=== PATIENT | male | born 1990 | race Caucasian/White ===

== ENCOUNTER 2016-12-01 20:57 | Emergency (ER) | payer OTHER ==
[2016-12-01 21:02] VITALS: RESP 14; TEMP 98.4
--- NOTE | 2016-12-01 21:17 | EDPHY ---
HPI/HX/ROS/PE/MDM Narrative: CHIEF COMPLAINT: Right lower extremity swelling. HISTORY OF PRESENT ILLNESS: The patient is a 26-year-old male presenting with right lower extremity swelling. The patient dove for a volleyball and landed in the grass on his right leg. He was able to continue playing volleyball game. He has been ambulatory and does not believe that he has any fracture. However, he developed a significant amount a lateral swelling and mild discomfort. He denies numbness or tingling in his foot. He denies a cold sensation to the foot. REVIEW OF SYSTEMS: Aside from elements discussed in the HPI, a comprehensive 10-point review of systems was reviewed and is negative. PAST MEDICAL HISTORY: Denies. SOCIAL HISTORY: Plays soccer and volleyball. VITAL SIGNS: Reviewed by me GENERAL: Well-developed, well-nourished, resting comfortably in no respiratory distress. HEENT: Benign. Atraumatic. LUNGS: Clear to auscultation bilaterally, no wheezes, rhonchi or rales. CARDIAC: Regular rate and rhythm, no rubs, murmurs or gallops. ABDOMEN: Soft, nontender, nondistended, bowel sounds normal. BACK: No CVA tenderness. EXTREMITIES: Abrasion to left patella. Small abrasion at right distal patella. On the lateral aspect of leg is a 20cm x 15cm area of swelling ecchymosis and tenderness. Good pulses and capillary refill. Foot is warm to the touch. Compartments on the calf are soft. NEURO: Alert and oriented, grossly nonfocal. SKIN: Warm and dry, no rash. PSYCHIATRIC: Normal mentation, no agitation. Portions of this note were transcribed by a medical records manager. I personally performed a history, physical exam, medical decision making, and confirmed accuracy of information the transcribed note. ED Course: Patient presents with right lower extremity swelling and tenderness after a fall playing volleyball this evening. Patient has a large area or swelling, ecchymosis, and tenderness. Plan for imaging. Xray: Tib-fib x-ray was obtained. I viewed the images myself on the PACS system. My interpretation of the images is: No fracture. The radiology interpretation is: Pending. I discussed the results with the patient. X-ray is negative for fracture. We discussed signs and symptoms of compartment syndrome at length with the patient. Jose A wrap was applied, the patient's leg was elevated, patient was instructed regarding icing aggressively. I discussed precautions for compartment syndrome. Patient is aware and will return if worse. MDM: Differential diagnosis for the patient's injury was considered including but not limited to contusion, abrasion, laceration, fracture, open fracture, hematoma, compartment syndrome, or dislocation. - Data Points Imaging: I viewed and interpreted images myself Medications Given: Discontinued Medications Hydrocodone Bitart/Acetaminophen (Alamo 5/325) 1 tab PO EDNOW ONE Stop: 12/01/16 22:14 Last Admin: 12/01/16 22:22 Dose: Not Given General Time Seen by Provider: 12/01/16 21:06 Initial Vital Signs: Initial Vital Signs Temperature (C) 36.9 C 12/01/16 20:59 Heart Rate 74 12/01/16 20:59 Respiratory Rate 14 12/01/16 20:59 Blood Pressure 114/81 H 12/01/16 20:59 O2 Sat (%) 93 12/01/16 20:59 O2 Delivery Mode Room Air Allergies/Adverse Reactions: No Known Allergies Allergy (Unverified 12/01/16 20:59) Home Medications: Medication Instructions Recorded Hydrocodone/APAP 5/325 [Alamo 1 tab PO Q6H PRN #10 tab 12/01/16 5/325 (RX)] Departure - Departure Disposition: Home, Routine, Self-Care Clinical Impression: Swelling of right lower extremity Condition: Good Instructions: Contusion in Adults (ED) Additional Instructions: Ice the leg aggressively 20-30 minutes every 1-2 hours. Apply mild compression with an JOSE A wrap. Take 600mg Ibuprofen every 6-8 hours as needed for pain and swelling. Take Alamo for severe pain. Watch for any signs of compartment syndrome including the 5Ps: 1. Paralysis, 2. Pulselessness, 3. Pain, 4. Pallor. 5. Paraesthesia. Referrals: Yosvany Floyd MD [Medical Doctor] - As per Instructions (Orthopedic surgery) Prescriptions: Hydrocodone/APAP 5/325 [Alamo 5/325 (RX)] 1 tab PO Q6H PRN #10 tab PRN Reason: Pain Report Scribed for: Sherry Hicks Report Scribed by: Xiomy Lo Date of Report: 12/01/16 Time of Report: 21:27
[2016-12-01] MEDS ORDERED: HYDROCODONE/APAP 5/325 TAB PO ONE (22:13)
[2016-12-01 22:52] VITALS: BP 141/91; PULSE 67; O2SAT 96
== END 2016-12-01 22:46 | disposition home or self-care (01) ==
DX: M79.89 Other specified soft tissue disorders (principal)